=== PATIENT | female | born 1955 | race Caucasian/White ===

== ENCOUNTER → 2020-12-18 09:11 | Outpatient (BNVA) | payer MEDICARE, OTHER, SELFPAY | PROVIDERS: PCP Student in an Organized Health Care Education/Training Program; Referring Provider Student in an Organized Health Care Education/Training Program; Visit Provider Specialist | DX: G89.0 Central pain syndrome (principal); I69.354 Hemiplegia and hemiparesis following cerebral infarction affecting left non-dominant side; R20.0 Anesthesia of skin; R20.2 Paresthesia of skin | CPT/HCPCS: 36415; 82550; 85651; 86140; 86160; 86162; 86235; 86255; 86376; 99205 ==

== ENCOUNTER 2020-12-18 11:38 | Outpatient (CLI) | payer MEDICARE, OTHER, SELFPAY ==
[2020-12-18 12:43] LABS: Creatine Phosphokinase 17 U/L (26-192)
[2020-12-18 13:06] LABS: Erythrocyte Sedimentation Rate 51 mm/hr (0-15)
[2020-12-19 13:02] LABS: COMPLEMENT COMPONENT C3C 161 mg/dL (83-193); COMPLEMENT COMPONENT C4C 37 mg/dL (15-57)
[2020-12-19 15:36] LABS: COMPLEMENT, TOTAL (CH50) >60 U/mL (31-60)
[2020-12-19 17:23] LABS: ANA SCREEN, IFA NEGATIVE (NEGATIVE); CENTROMERE B ANTIBODY <1.0 NEG AI (<1.0 NEG); JO-1 ANTIBODY <1.0 NEG AI (<1.0 NEG); RNP ANTIBODY <1.0 NEG AI (<1.0 NEG); SCL-70 ANTIBODY <1.0 NEG AI (<1.0 NEG); SJOGREN'S ANTIBODY (SS-A) <1.0 NEG AI (<1.0 NEG); SM ANTIBODY <1.0 NEG AI (<1.0 NEG); SS-B <1.0 NEG AI (<1.0 NEG); THYROID PEROXIDASE ANTIBODIES <1 IU/mL (<9)
[2020-12-22 15:41] LABS: DNA AB (DS) CRITHIDIA,IFA NEGATIVE (NEGATIVE)
== END 2020-12-18 11:39 | disposition home or self-care (01) ==
LOC: LAB 11:47
PROVIDERS: PCP Student in an Organized Health Care Education/Training Program; Visit Provider Specialist
DX: R20.0 Anesthesia of skin (principal); R20.2 Paresthesia of skin
CPT/HCPCS: 36415; 82550; 85651; 86140; 86160; 86162; 86235; 86255; 86376

== ENCOUNTER 2020-12-28 10:02 | Outpatient (CLI) | payer MEDICARE, OTHER, SELFPAY ==
--- NOTE | 2020-12-28 10:15 | MR_ITS ---
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 COMPARISON: None available. TECHNIQUE: Diffusion imaging, multiplanar T1, T2 and FLAIR imaging obtained. No acute diffusion-weighted abnormalities. There is a large LEFT MCA territory remote infarct with castorena sceptibility artifact from hemorrhage. Additional bilateral subcortical and predominantly frontal lob e white matter abnormalities from chronic ischemic disease. No acute hemorrhage. Ventricles and extra-axial spaces are normal. No inferior displacement of cerebellar tonsils. The sella turcica and pituitary gland are unremarkabl e. Dural venous sinuses and [place] of [place] demonstrate no abnormality on this unenhanced studies. Paranasal sinuses: Small amount of fluid in the floor the LEFT maxillary sinus. Mastoid air cells: Normal. Calvarium and scalp: Intact. MR/MR head wo con* [id number] IMPRESSION: 1. No acute infarct or hemorrhage. 2. Large remote LEFT MCA territory infarct with volume loss, gliosis and encep halomalacia. 3. Additional small vessel ischemic disease in the subcortical white matter of the frontal lobes.
== END 2020-12-28 10:03 | disposition home or self-care (01) ==
LOC: RADSHAW 10:03
PROVIDERS: PCP Student in an Organized Health Care Education/Training Program; Visit Provider Specialist
DX: I69.354 Hemiplegia and hemiparesis following cerebral infarction affecting left non-dominant side (principal); I63.89 Other cerebral infarction; I67.82 Cerebral ischemia
CPT/HCPCS: 70551

== ENCOUNTER → 2021-02-07 14:55 | Outpatient (BNVA) | payer MEDICARE, OTHER, SELFPAY | PROVIDERS: PCP Student in an Organized Health Care Education/Training Program; Visit Provider Specialist | DX: R51.9 Headache, unspecified (principal); Z20.822 Contact with and (suspected) exposure to COVID-19; R53.1 Weakness; G89.0 Central pain syndrome; R70.0 Elevated erythrocyte sedimentation rate; R20.8 Other disturbances of skin sensation; G24.3 Spasmodic torticollis; G20 Parkinson's disease; Z20.7 Contact with and (suspected) exposure to pediculosis, acariasis and other infestations | CPT/HCPCS: 87635; 99215 ==

== ENCOUNTER 2021-02-11 05:34 | Day surgery (SDC) | payer MEDICARE, OTHER, SELFPAY ==
[2021-02-07 10:56] VITALS: BMI 30.7
--- NOTE | 2021-02-07 11:02 | ECG_ITS ---
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 Measurements Intervals Jackson Rate: 58 P: 28 NE: 196 QRS: 4 QRSD: 105 T: -8 QT: 428 QTc: 424 Interpretive Statements SINUS BRADYCARDIA POSSIBLE ANTERIOR MYOCARDIAL INFARCTION , OF INDETERMINATE AGE [30 ms Q WAVE IN V3/V4, OR R < 0.2 mV IN V4] No previous ECG available for comparison Electronically Signed On 02-08-2021 5:50:15 CDT by Daisy Haskins M.D. [email or web address]
[2021-02-07 12:17] LABS: Basophils % 0.3 %; Eosinophils # 0.2 10^3/uL (0.0-0.8); Eosinophils % 2.3 %; Hematocrit 38.8 % (37.0-47.0); Hemoglobin 12.8 g/dL (11.5-15.3); Lymphocytes # 1.2 10^3/uL (0.8-4.8); Lymphocytes % 19.1 %; Mean Corpuscular Volume 93.9 fl (81-99); Mean Platelet Volume 9.9 fL (7.4-10.4); Monocytes # 0.5 10^3/uL (0.2-0.9); Monocytes % 8.5 %; Neutrophils # 4.36 10^3/uL (1.8-7.7); Neutrophils % 68.2 %; Nucleated Red Blood Cells % 0 %; Platelet Count 221 10^3/cmm (130-400); Red Blood Count 4.13 10^6/uL (4.1-5.3); Red Cell Distribution Width 13.4 % (12.1-15.1); White Blood Count 6.4 10^3/uL (4.0-10.0)
[2021-02-07 12:46] LABS: Anion Gap 16.2 (5-19); Blood Urea Nitrogen 24 mg/dL (8-23); Calcium 9.8 mg/dL (8.5-10.5); Carbon Dioxide 27 mmol/L (22-29); Chloride 101 mmol/L (98-107); Glomerular Filtration Rate 37.7 mL/min (90-130); Glucose 100 mg/dL (65-115); Osmolality Calculated 294 mOsm/kg (285-295); Potassium 4.2 mmol/L (3.5-5.1); Sodium 140 mmol/L (136-145)
--- NOTE | 2021-02-07 13:04 | ANES.PREANE2 ---
Pre-Anesthetic Assessment Pre-Anesthetic Assessment: Height/Weight: Height 1.68 m Weight 86.183 kg Proposed Procedure: Operation Date: 02/11/21 07:00 Proposed Procedures p Temporal Artery Biopsy(Not Applicable) - Felix Lake MD Was Beta Romeo taken within 24 hours: N/A Was Clonidine taken within 24 hours: N/A Social: Social History: No alcohol and No tobacco Exam: Pre-Anes Outpt Exam: alert Additional Exam Findings (including area of procedure): very quiet, non-engaging female upright in wheelchair; her did majority of communication History/ROS: No significant complaints Pulmonary: Pulmonary: None reported CV/HEM: CV/HEM: None reported : : None reported Hepatic: Hepatic: None reported GI: GI: None reported Metabolic: Metabolic: Morbid obesity Neuropsych: Neuropsych: CVA and Deficit Comments: Parkinsonian syndrome; L sided weakness s/p CVA Anesthetic Plan: ASA status: 3 Anesthesia: Choice Risk of > 500 ml blood loss (7ml/kg in children): No Data Anesthesia CBC & Chem 7: 02/07/21 11:00 02/07/21 11:00 Other Labs: Laboratory Results - last 48 hr 02/07/21 02/07/21 11:00 11:00 WBC 6.4 RBC 4.13 Hgb 12.8 Hct 38.8 MCV 93.9 MCH 31.0 MCHC 33.0 RDW 13.4 Plt Count 221 MPV 9.9 Neut % (Auto) 68.2 Lymph % (Auto) 19.1 [place] % (Auto) 8.5 Eos % (Auto) 2.3 Baso % (Auto) 0.3 Neut # (Auto) 4.36 Lymph # (Auto) 1.2 [place] # (Auto) 0.5 Eos # (Auto) 0.2 Baso # (Auto) 0.0 Nucleated RBC % (auto) 0 Nucleated RBCs # 0.0 Sodium 140 Potassium 4.2 Chloride 101 Carbon Dioxide 27 Anion Gap 16.2 BUN 24 H Creatinine 1.4 H GFR Calculation 37.7 L Glucose 100 Calculated Osmolality 294 Calcium 9.8 Cardiac Studies: No Data to Display
[2021-02-11] VITALS (14 sets, daily range): BP systolic 129–183; BP diastolic 79–102; PULSE 70–75; RESP 6–17; TEMP 36.3–37.1; O2SAT 95–99
[2021-02-11] MEDS: sodium chloride 0.9% 1,000 ML 30 ML IV (06:30)
--- NOTE | 2021-02-11 06:32 | P.HP_ITS ---
Providers/Chief Complaint Primary Care Provider: Demetrius Whitfield MD Chief Complaint: Headache History of Present Illness Vivien Romero is a 65 year old female whom I saw originally on consultation from Dr. Cedillo. She was seen in my clinic on December 28. 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 She has substantial headaches, neck pain and has had developing diffuse weakness. Dr. Cedillo is concerned about temporal arteritis as well as polymyalgia rheumatica. She was most recently seen by Dr. Cedillo on February 07. Currently, she is only able to stand with assistance from her and she has diffuse weakness. Recent MRI did reveal diffuse white matter changes. She had a progressive weight loss of over 50 pounds. From her prior visit with me on December 28, it appeared that she had a slightly improved biphasic signal of the right superficial temporal artery as compared to the left. Review of Systems Const: Denies: fever(s), chills, change in appetite, change in weight, fatigue or night sweats Eyes: Denies: change in vision or blurry vision ENMT: Denies: odynophagia or hoarseness Card: Denies: chest pain, palpitations, irregular heart rhythm or edema Resp: Denies: dyspnea or productive cough GI: Denies: abdominal pain, nausea, vomiting, dysphagia, heartburn or change in bowel habits : Denies: dysuria, urinary frequency, urinary urgency or urinary hesitancy Musc: Denies: extremity pain or extremity swelling Skin/Breast: Denies: rash Neuro: Reports: headache(s), numbness in extremities, weakness in extremities, difficulty walking, Slurred speech present and difficulty communicating thoughts Psych: Denies: anxiety, depression or change in appetite Endo: Denies: polyuria, polydipsia or cold intolerance Corby/Lymph: Denies: easy bruising, easy bleeding, petechiae or enlarged lymph nodes Medications/Allergies Home Medications Medication Instructions Recorded Confirmed Last Taken Type L.acidoph, paracasei,B. lactis 10 1 cell PO DAILY 12/18/20 02/11/21 02/10/21 08:00 History billion cell capsule aspirin 81 mg tablet,delayed 81 mg PO DAILY 12/18/20 02/11/21 02/08/21 History release atorvastatin 20 mg tablet 20 mg PO DAILY 12/18/20 02/11/21 02/10/21 08:00 History bisoprolol fumarate 5 mg tablet 5 mg PO DAILY 12/18/20 02/11/21 02/10/21 08:00 History gabapentin 300 mg capsule 300 mg PO BID PRN #60 cap 12/18/20 02/11/21 02/10/21 12:00 Rx garlic 1,000 mg capsule 1,000 mg PO DAILY 12/18/20 02/11/21 02/10/21 08:00 History mirabegron 25 mg tablet,extended 25 mg PO DAILY 12/18/20 02/11/21 02/10/21 08:00 History release 24 hr qdeirqff-ogvo-rhwdd acid 200 1 tab PO DAILY 12/18/20 02/11/21 02/10/21 08:00 History mcg-herbal no.293 37.5 mg chewable tablet prednisone 20 mg tablet 20 mg PO TID #90 tab 02/07/21 02/11/21 02/10/21 20:00 Rx Allergies Allergy/AdvReac Type Severity Reaction Status Date / Time No Known Allergies Allergy Verified 02/11/21 05:56 PFSH Acute PFSH: Social History History of recent travel: No Vitals/I&O/Wt Last Vital Signs Temp 98.7 F 02/11/21 05:59 Pulse 71 02/11/21 05:59 Resp 17 02/11/21 05:59 BP 129/102 02/11/21 05:59 Pulse Ox 97 02/11/21 05:59 Physical Exam Const: COMMON NORMALS: patient oriented x3 and alert ORIENTATION/CONSCIOUSNESS: Yes oriented to person, Yes oriented to place and Yes oriented to time HENMT: COMMON NORMALS: normocephalic HEAD & SCALP: normocephalic; no cranial bruits Neck/C-Spine: COMMON NORMALS: full ROM, supple, no JVD and No carotid bruits GENERAL: Yes trachea midline CERVICAL SPINE: Yes cervical ROM normal Chest: COMMONS NORMALS: normal inspection of the chest and normal palpation of entire chest wall Resp: COMMON NORMALS: normal respiratory effort, No use of accessory muscles, clear to auscultation bilaterally and percussion normal EFFORT & INSPECTION: Yes able to speak in complete sentences and Yes symmetric chest movement AUSCULTATION: clear to auscultation bilaterally PERCUSSION: percussion normal Cardio: COMMON NORMALS: no JVD, regular rate, regular rhythm, S1 normal heart sound present, S2 normal heart sound present, No gallops present (Cardio), No murmurs present (Cardio), No rub (Cardio) and Peripheral pulses 2+ throughout JUGULAR VENOUS DISTENTION: no JVD RATE: regular rate RHYTHM: regular rhythm HEART SOUNDS: S1 normal heart sound present and S2 normal heart sound present PERIPHERAL PULSES: radial pulses present positive bilateral 2+ Neuro: COMMON NORMALS: patient oriented x3 SENSORIUM/ORIENTATION: Yes alert, Yes oriented to person, Yes oriented to place, Yes oriented to time and Yes lethargic GAIT: Yes Normal gait present Data : 02/07/21 11:00 02/07/21 11:00 A&P Assessment and plan (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 I do note on my last exam with her that her biphasic signal is slightly greater in the right as compared to the left superficial temporal artery. I do note on Dr. Cedillo's recent exam from February 07 that she appeared to have more tenderness in the left temporal region than the right. We will assess on the OR table utilizing Doppler to determine appropriate side for biopsy. She has been consented for either side. Rationale was again carefully discussed with her and her who was present this morning. All questions were answered. She wishes to proceed. 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
--- NOTE | 2021-02-11 06:55 | P.ANESUD_ITS ---
Pre-Anesthetic Update Pre-Anesthetic Assessment: Date of Surgery/Procedure: 02/11/21 Preop Salma gnosis: Generalized arteritis/superficial temporal artery biopsy:Right or left side Proposed Procedure: Operation Date: 02/11/21 07:00 Proposed Procedures p Temporal Artery Biopsy(Not Applicable) - Felix Lake MD Any changes to Pre-Anesthetic Assessment?: No Last Intake: Intake Last Liquid Date 02/10/21 Last Liquid Time 19:00 Last Solid Date 02/10/21 Last Solid Time 19:00 Vitals: Temperature 98.7 F 02/11/21 05:59 Temperature Source Temporal Artery S can 02/11/21 05:59 Pulse Rate 71 02/11/21 05:59 Respiratory Rate 17 02/11/21 05:59 Blood Pressure 129/102 02/11/21 05:59 Blood Pressure Sanna n 111 02/11/21 05:59 Pulse Oximetry 97 02/11/21 05:59 Oxygen Delivery Me thod 02/11/21 06:02 Exam: Pre-Anes Outpt Exam: alert, oriented x 3, clear to auscultation bilaterally and regular rate & rhythm Cardiac Studies: No Data to Display
[2021-02-11] MEDS: vancomycin 1,000 MG SDV 1000 MG IRRIGATION (06:58)
[2021-02-11] MEDS: lidocaine 1% INJ 20 mL SUBCUT (07:25)
--- NOTE | 2021-02-11 08:13 | P.OP_ITS ---
Operative Report Date of procedure: February 11, 2021 Pre-op Diagnosis: Generalized arteritis/superficial temporal artery biopsy:Right or left side Post-op diagnosis: same Procedure Done: Left superficial temporal artery biopsy Specimens removed/disposition: Portion of left superficial temporal artery to pathology Surgeon: Felix Lake Anesthesia: Local (1% lidocaine infiltrated locally) and Other (Laryngeal MAC) Complications: None Disposition: PACU Brief History: 65-year-old female status post left middle cerebral occlusion with interventional rescue. She is developed central pain syndrome and been followed carefully by Dr. Cedillo. Secondary to persistent headaches, temporal artery biopsy has been recommended for concerns of arteritis. During her most recent clinic visit with Dr. Cedillo, she complained of tenderness greater in the left temporal region compared to the right. Rationale for this was carefully discussed with the patient and her . Appropriate scans have been reviewed and signed. Procedure: Ms. Romero was taken to the operating room theater and carefully positioned on the OR table with appropriate protective padding. Due to her substantial generalized discomfort, laryngeal mask anesthesia was recommended and induced. Left superficial temporal artery could be easily palpated and the area was removed with hair and sterilely prepped and draped. 1% lidocaine was infiltrated and then utilizing #15 scalpel blade incision was made through the skin and subtendinous tissues where dissection was performed utilizing tenotomy scissors. The superficial temporal artery was dissected free and isolated and then secured with small clips proximally and distally and then divided. Specimen was then removed from the field and placed in the appropriate container and then transported to pathology. Hemostasis was confirmed. Wound was irrigated with antibiotic solution. Wound was closed with 3-0 Vicryl suture and then Monocryl suture in a subcuticular manner. Sterile dressings were applied. She was awakened from anesthesia with stable vital signs. She is transported to the postoperative care unit in stable condition. I did certified genetic counselor with her at the completion of the procedure.
[2021-02-11] MEDS: fentaNYL 50 mcg/mL INJ 2mL IVP (08:29)
[2021-02-11] MEDS: HYDROcodone-acetaminophen 5-325 mg Tablet 1 TAB PO (09:07)
--- NOTE | 2021-02-11 15:45 | ANE.PACU2 ---
Inpatient post-anesthesia follow up: Airway intact: Yes Vital signs: Temperature 97.6 F Pulse Rate 73 Respiratory Rate 16 Blood Pressure 175/97 Pulse Oximetry 98 Oxygen Delivery Me thod Room Air Oxygen Flow Rate 4 Fraction of Inspir ed Oxygen Hydration adequate: Yes Nausea and vomiting: No Pain level: 2 Mental status: Baseline
== END 2021-02-11 09:39 | disposition home or self-care (01) ==
PROVIDERS: PCP Student in an Organized Health Care Education/Training Program; Visit Provider Thoracic Surgery (Cardiothoracic Vascular Surgery)
PROC: (CPT 37609; principal; 2021-02-11 07:00)
DX: I77.6 Arteritis, unspecified (principal); G89.0 Central pain syndrome; Z79.82 Long term (current) use of aspirin; Z79.52 Long term (current) use of systemic steroids; E66.01 Morbid (severe) obesity due to excess calories; Z68.30 Body mass index [BMI] 30.0-30.9, adult; Z86.73 Personal history of transient ischemic attack (TIA), and cerebral infarction without residual deficits; G20 Parkinson's disease
CPT/HCPCS: 37609; 80048; 85025; 86850; 86900; 88305; 93005; J0690; J2370; J2405; J2704; J3010; J3370; J7030

== ENCOUNTER → 2021-03-05 15:18 | Outpatient (BNVA) | payer MEDICARE, OTHER, SELFPAY | PROVIDERS: PCP Student in an Organized Health Care Education/Training Program; Visit Provider Specialist | DX: G20 Parkinson's disease (principal); G89.0 Central pain syndrome; G24.3 Spasmodic torticollis; I69.351 Hemiplegia and hemiparesis following cerebral infarction affecting right dominant side | CPT/HCPCS: 99215 ==